=== PATIENT | female | born 1950 | race Caucasian/White ===

== ENCOUNTER 2017-10-04 17:43 | Emergency (ER) | payer OTHER ==
[~2017-10-04] VITALS: Ht 162.6 cm; Wt 68.9 kg
[2017-10-04 17:55] VITALS: BP 137/63
--- NOTE | 2017-10-04 18:00 | NUR ---
Pt taken to bed 5.
[2017-10-04] MEDS ORDERED: NACL 0.9% 1,000 ML IV ONE (18:09)
[2017-10-04] MEDS ORDERED: ONDANSETRON 4 MG/2 ML VIAL IVP ONE (18:10)
[2017-10-04] MEDS ORDERED: KETOROLAC 30 MG/ML VIAL IVP ONE (18:10)
--- NOTE | 2017-10-04 18:15 | NUR ---
67/F c/o left lower abd pain x3 days. Pt describes pain radiating to left flank area. Pt c/o nausea, denies vomiting/diarrhea. Abdomen soft, tender with palpation. AOX4, qatari speaking, clear speech. Hx gastritis
--- NOTE | 2017-10-04 18:19 | NUR ---
Pt taken to CT via w/c.
[2017-10-04 18:34] LABS: BASOPHILS % (AUTO) 0.2 % (0.0-2.0); EOSINOPHILS # (AUTO) 0.1 K/uL (0-0.4); EOSINOPHILS % (AUTO) 0.9 % (0.0-4.0); HEMATOCRIT 35.1 % (36-48); HEMOGLOBIN 11.8 g/dL (12.0-16.0); LYMPHOCYTES # (AUTO) 1.8 K/uL (2.5-16.5); LYMPHOCYTES % (AUTO) 15.7 % (20.5-51.1); MEAN CORPUSCULAR HEMOGLOBIN 30 pg (27-31); MEAN CORPUSCULAR HGB CONC 34 g/dL (33-37); MEAN CORPUSCULAR VOLUME 88.1 fL (80-94); MONOCYTES # (AUTO) 0.7 K/uL (0.8-1.0); MONOCYTES % (AUTO) 6.1 % (1.7-9.3); NEUTROPHILS # (AUTO) 8.7 K/uL (1.8-7.7); NEUTROPHILS % (AUTO) 77.1 % (42.2-75.2); PLATELET COUNT (AUTO) 277 K/uL (140-450); RED BLOOD CELL COUNT(AUTO) 3.99 MIL/uL (4.20-5.40); RED CELL DISTRIBUTION WIDTH 12.6 % (11.6-13.7); WHITE BLOOD COUNT (AUTO) 11.3 K/uL (4.8-10.8)
--- NOTE | 2017-10-04 18:34 | NUR ---
Pt back from CT and placed in bed 5. Lab at bedside for blood draw.
[2017-10-04 18:47] LABS: ANION GAP 17.3 (8-16); CARBON DIOXIDE 21.1 mmol/L (21-32); CREATININE 0.8 mg/dL (0.6-1.3); POTASSIUM 3.4 mmol/L (3.5-5.1)
[2017-10-04 18:53] LABS: ALBUMIN 4.1 g/dL (3.4-5.0)
--- NOTE | 2017-10-04 19:07 | NUR ---
Pt report given to Lior LANGSTON. Transfer of care at this time.
--- NOTE | 2017-10-04 19:09 | NUR ---
GOT REPORT FROM KIAN SCHULZ. PT. RESITING IN BED, NO S/SX OF DISTRESS AT THIS TIME.
--- NOTE | 2017-10-04 19:18 | NUR ---
Dr. Moran evaluating patient at bedside.
[2017-10-04 19:40] VITALS: BP 140/67
--- NOTE | 2017-10-04 19:40 | NUR ---
Patient discharged with v/s stable. Written and verbal after care instructions given and explained. Patient alert, oriented and verbalized understanding of instructions. Ambulatory with steady gait. All questions addressed prior to discharge. ID band removed. Patient advised to follow up with PMD. Rx of NORCO 5/325 MG given. Patient educated on indication of medication including possible reaction and side effects. Opportunity to ask questions provided and answered.
== END 2017-10-04 19:40 | disposition home or self-care (01) ==
LOC: MED 17:43
DX: R10.12 Left upper quadrant pain (principal); Z88.8 Allergy status to other drugs, medicaments and biological substances
CPT/HCPCS: 36415; 74176; 80053; 81002; 81025; 83605; 85025; 87040; 96374; 96375; 99285; J1885; J2405; 96361